=== PATIENT | male | born 1970 | race Caucasian/White ===

== ENCOUNTER 2021-02-07 18:26 | Emergency (ER) | payer OTHER ==
[~2021-02-07 18:26] MED LIST: BACTROBAN OINT22 GM TOP; KEFLEX500 MG PO
[2021-02-07 19:21] LABS: HEMOGLOBIN 15.6 gm/dl (14.0-17.5); RED BLOOD COUNT 4.52 M/UL (4.20-5.50); WHITE BLOOD COUNT 11.6 K/UL (4.5-11.0)
[2021-02-07 20:06] LABS: BUN/CREATININE RATIO 12 (0-10)
== END 2021-02-07 20:44 | disposition left against medical advice (07) ==
LOC: ER1 18:26
PROVIDERS: Emergency Medicine
DX: R07.9 Chest pain, unspecified (principal); F17.200 Nicotine dependence, unspecified, uncomplicated
CPT/HCPCS: 71045; 80053; 82550; 82553; 83690; 83874; 84484; 85025; 93005; 99285

== ENCOUNTER 2022-03-18 01:04 | Emergency (ER) | payer OTHER ==
[2022-03-18 03:33] LABS: HEMOGLOBIN 14.2 gm/dl (14.0-17.5); RED BLOOD COUNT 4.22 M/UL (4.20-5.50); WHITE BLOOD COUNT 11.1 K/UL (4.5-11.0)
[2022-03-18 03:53] LABS: BUN/CREATININE RATIO 15 (0-10)
== END 2022-03-18 06:21 | disposition home or self-care (01) ==
LOC: ER1 01:04
PROVIDERS: Physician Assistant
DX: K40.90 Unilateral inguinal hernia, without obstruction or gangrene, not specified as recurrent (principal); K21.9 Gastro-esophageal reflux disease without esophagitis; F17.210 Nicotine dependence, cigarettes, uncomplicated
CPT/HCPCS: 80053; 83690; 85025; 96374; 99284; J1885; Q9967